=== PATIENT | female | born 1955 | race African-American/Black ===

== ENCOUNTER 2020-02-07 04:15 | Inpatient (IN) | payer BC ==
[2020-02-06 16:10] VITALS: BMI 35.2
[2020-02-07] MEDS ORDERED: DEXAMETHASONE SOD PHOSPHATE/PF 10 MG/ML SDV ONE (07:07)
[2020-02-07] MEDS ORDERED: MIDAZOLAM HCL 2 MG/2 ML SINGLE DOSE VIAL ONE ×2 (07:48)
[2020-02-07] MEDS ORDERED: CEFAZOLIN 2 GM/D5W 2 GM/50 ML ML IVPB ONE (08:08)
--- NOTE | 2020-02-07 08:08 | HP ---
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: Alzheimer's, CVA, Dementia, Migraine, Multiple Sclerosis, Peripheral Neuropathy, Parkinson's, Seizure, Syncope, TIA, Vertigo, Other Cardiovascular: No: AFIB, Aneurysm, Aortic Insufficiency, Aortic Stenosis, CAD, CHF, Deep Vein Thrombosis, HTN, Hyperlipdemia, VA, Mitral Insufficiency, Mitral Stenosis, Murmur, Pulmonary Hypertension, Other Pulmonary: No: Asthma, Bronchitis, Cancer, COPD, O2 Dependent, Pneumonia, Previously Intubated, Pulmonary Embolus, Pulmonary Fibrosis, Sleep Apnea, Other Gastrointestinal: No: Ascites, Cancer, Constipation, Crohn's Disease, Diverticulitis, Diverticulosis, Esophageal Varices, Gastritis, GERD, GI Bleed, Hemorrhoids, Hiatal Hernia, Inflamatory Bowel Disease, Irritable Bowel Disease, Pancreatitis, Peptic Ulcer Disease, Ulcerative Colitis, Other Hepatobiliary: No: Cirrhosis, Cholelithiasis, Cholecystitis, Choledocholithiasis, Hepatitis A, Hepatitis B, Hepatitis C, Other Renal/: No: Renal Failure, Renal Inusuff, BPH, Cancer, Hematuria, Hemodialysis, Neurogenic Bladder, Renal Calculi, UTI, Other Reproductive: No: Ectopic , Endometriosis, Fibroids, PID, Polycystic Ovary Syndrome, Postmenopausal, Other ...: No Heme/Onc: No: Anemia, B12 Deficiency, Bleeding Disorder, Cancer, Current Chemotherapy, Current Radiation Therapy, Hemochromatosis, Hypercoaguable State, Myeloproliferative Synd, Sickle Cell Disease, Sickle Cell Trait, Thrombocytopenia, Other Infectious Disease: No: AIDS, C-Diff, Herpes Zoster, HIV, MRSA, STD's, Tuberculosis, VREF, Other Psych: No: Addictions, Anxiety, Bipolar, Depression, Panic, Psychosis, Schizophrenia, Other Musculoskeletal: No: Bursitis, Chronic low back pain, Hemiparesis, Hemiplegia, Osteoarthritis, Paraplegia, Other Rheumatology: No: Fibromyalgia, Gout, Lupus, Rheumatoid Arthritis, Sarcoidosis, Vasculitis, Other ENT: No: Allergic Rhinitis, Sinusitis, Other Endocrine: No: Patrick's Disease, Chinyere's Disease, Diabetes Insipidus, Diabetes Mellitus, Hyperparathyroidism, Hyperthyroidism, Hypothyroidism, Osteopenia, SIADH, Other Dermatology: No: Basal Cell, Cellulitis, Eczema, Melanoma, Psoriasis, Squamous Cell, Other - Past Surgical History Past Surgical History: No: None, AAA Repair, AICD, Amputation, Appendectomy, Arthrosocopy, AV Fistula/Graft, Bariatric Surgery, Breast Biopsy, Bypass, CABG, Carotid Endarterectomy, Cataract Removal, Cholecystectomy, Colectomy, Colonoscopy, Colostomy, Craniotomy, , Cystectomy, Hernia Repair, Hysterectomy, Ileal Conduit, Ileosotomy, Joint Replacement, Kidney Transplant, Laminectomy, Liver Transplant, Mastectomy, Nephrectomy, Oopherectomy, Orchiectomy, Permanent Pacemaker, Prostatectomy, Splenectomy, Stent, Thoracotomy, TURP, Tonsillectomy, Tubal Ligation, Upper Endoscopy, Valve Replacement, Vasectomy, Vein Stripping/Ligation - Advance Directives Advance Directives: Yes: Living Will - Smoking History Smoking history: Never smoked Have you smoked in the past 12 months: No - Alcohol/Substance Use Hx Alcohol Use: No History of Substance Use: reports: None - Social History Usual Living Arrangement: Yes: With Significant Other Do you think of yourself as: Straight/Heterosexual ADL: Independent History of Recent Travel: No Home Medications - Allergies Allergies/Adverse Reactions: Allergies Allergy/AdvReac Type Severity Reaction Status Date / Time No Known Allergies Allergy Verified 02/07/20 06:47 - Home Medications Home Medications: Ambulatory Orders Amlodipine Besylate 2.5 mg PO DAILY 02/06/20 Brimonidine Tartrate/Timolol [Combigan Eye Drops] 5 ml OU HS 02/06/20 Latanoprost 0.005% Eye Drops [Xalatan 0.005% Eye Drops -] 1 drop OU HS 02/06/20 Losartan Potassium 50 mg PO DAILY 02/06/20 Multivit-Min/Iron/Folic Acid/K [One Daily Women's Multivitamin] 1 each PO DAILY 02/06/20 Family Medical History Family History: Denies Review of Systems - Review of Systems Constitutional: reports: No Symptoms Eyes: reports: No Symptoms HENT: reports: No Symptoms Neck: reports: No Symptoms Cardiovascular: reports: No Symptoms Respiratory: reports: No Symptoms Gastrointestinal: reports: No Symptoms Genitourinary: reports: No Symptoms Breasts: reports: No Symptoms Reported Musculoskeletal: reports: No Symptoms Integumentary: reports: No Symptoms Neurological: reports: No Symptoms Endocrine: reports: No Symptoms Hematology/Lymphatic: reports: No Symptoms Psychiatric: reports: No Symptoms Physical Examination Vital Signs: Vital Signs Temperature 98 F 02/07/20 06:38 Pulse Rate 81 02/07/20 06:38 Respiratory Rate 18 02/07/20 06:38 Blood Pressure 145/83 02/07/20 06:38 O2 Sat by Pulse Oximetry (%) 99 02/07/20 06:38 Constitutional: Yes: Well Nourished, No Distress, Calm Eyes: Yes: WNL, Conjunctiva Clear, EOM Intact HENT: Yes: WNL, Atraumatic, Normocephalic Neck: Yes: WNL, Supple, Trachea Midline Cardiovascular: Yes: WNL, Regular Rate and Rhythm Respiratory: Yes: WNL, Regular, CTA Bilaterally Gastrointestinal: Yes: WNL, Normal Bowel Sounds, Soft ...Rectal Exam: Yes: WNL Renal/: Yes: WNL Breast(s): Yes: WNL Musculoskeletal: Yes: WNL Extremities: Yes: WNL Edema: No Peripheral Pulses WNL: Yes Integumentary: Yes: WNL Wound/Incision: Yes: Clean/Dry, Well Approximated Neurological: Yes: WNL, Alert, Oriented ...Motor Strength: WNL Psychiatric: Yes: WNL, Alert, Oriented Assessment/Plan for menopausal vag bleeding, fibroids
[2020-02-07] MEDS ORDERED: SUCCINYLCHOLINE CHLORIDE 200 MG/10 ML SYRINGE ONE (08:30)
[2020-02-07] MEDS ORDERED: LIDOCAINE HCL/PF 2% SDV 5ML VIAL ONE (08:30)
[2020-02-07] MEDS ORDERED: fentaNYL CITRATE 250 MCG/5 ML VIAL ONE (08:30)
[2020-02-07] MEDS ORDERED: ROCURONIUM BROMIDE 50 MG/5 ML SYRINGE ONE (08:30)
[2020-02-07] MEDS ORDERED: PROPOFOL 20 ML ONE (08:30)
[2020-02-07] MEDS ORDERED: ceFAZolin 2 GRAM PREMIX BAG IVPB ONE (08:38)
--- NOTE | 2020-02-07 10:04 | EKG ---
Test Reason : Blood Pressure : / mmHG Vent. Rate : 063 BPM Atrial Rate : 063 BPM P-R Int : 148 ms QRS Dur : 086 ms QT Int : 436 ms P-R-T Axes : 038 016 015 degrees QTc Int : 446 ms NORMAL SINUS RHYTHM NORMAL ECG NO PREVIOUS ECGS AVAILABLE Confirmed by MD Moi, Joe ([id number]) on 02/07/2020 10:03:43 AM Referred By: Vianey SORIA Confirmed By:Joe Prater MD
[2020-02-07] MEDS ORDERED: GLYCOPYRROLATE 0.2 MG/1 ML VIAL ONE ×2 (10:24)
[2020-02-07] MEDS ORDERED: NEOSTIGMINE METHYLSULFATE 0.5 MG/1 ML - 10 ML MDV ONE (10:24)
--- NOTE | 2020-02-07 10:36 | PN ---
Progress Note (short form) - Note Progress Note: I assisted Dr. Salvador at [facility] for the entirety of the case.
[2020-02-07] MEDS ORDERED: IBUPROFEN 800 MG/8 ML IJ IVPB PRN (10:41)
[2020-02-07] MEDS ORDERED: ACETAMINOPHEN 325 MG TABLET (FP) PO PRN (10:41)
[2020-02-07] MEDS ORDERED: oxyCODONE HCL 5 MG TABLET PO PRN ×2 (10:41)
[2020-02-07] MEDS ORDERED: ONDANSETRON 4 MG/2 ML VIAL IVPUSH PRN (10:47)
[2020-02-07] MEDS ORDERED: PROMETHAZINE HCL 25 MG/1 ML VIAL IVPB PRN (10:47)
--- NOTE | 2020-02-07 10:50 | OP ---
Operative Note - Note: Operative Date: 02/07/20 Pre-Operative Diagnosis: menopausal vag bleeding, fibroids Operation: ailin, bso Findings: fibroids, Post-Operative Diagnosis: Same as Pre-op Surgeon: Javy Salvador [employer] Dual Rate Supervisor: Thomas Braun Anesthesiologist/ADMISSIONS OFFICER: Hieu Martinez Anesthesia: General Specimens Removed: uterus, ovaries , tubes Estimated Blood Loss (mls): 600 (no complications ) Operative Report Dictated: Yes
[2020-02-07] MEDS ORDERED: HYDROmorphone *PCA* 10MG/50ML DISP.SYRIN ONE (10:54)
[2020-02-07] MEDS ORDERED: HYDROmorphone *PCA* 10MG/50ML DISP.SYRIN PCA SCH (11:00)
[2020-02-07] MEDS ORDERED: HYDROmorphone *PCA* 10MG/50ML DISP.SYRIN PCA ONE ×2 (11:25→11:45)
[2020-02-07] MEDS: CEFAZOLIN 2 GM/D5W 2 GM/50 ML ML IVPB SCH (17:53)
[2020-02-08] MEDS: CEFAZOLIN 2 GM/D5W 2 GM/50 ML ML IVPB SCH (02:04)
[2020-02-08 08:11] LABS: BASO % 0.1 % (0-2.0); HEMATOCRIT 32.7 % (32.4-45.2); HEMOGLOBIN 11.3 GM/dL (10.7-15.3); LYMPH % 13.7 % (8-40); MCH 31.7 pg (25.7-33.7); MCHC 34.6 g/dl (32.0-36.0); MEAN CELL VOLUME 91.7 fl (80-96); MEAN PLT VOLUME 7.8 fl (7.5-11.1); MONO % 5.4 % (3.8-10.2); NEUT % 80.8 % (42.8-82.8); PLATELET COUNT 261 K/MM3 (134-434); RBC 3.57 M/mm3 (3.60-5.2); WHITE BLOOD COUNT 10.7 K/mm3 (4.0-10.0)
--- NOTE | 2020-02-08 11:32 | PN ---
HC Provider Note Provider Note: Anesthersia Post Op Note Pt s/p GA w/ PNB for VENTURA/BSO Pt awake and alert sitting up in bed Denies n/v, no puritis pt reports good pain control 07/24 with minimal use of FLOOR DIRECTOR pt tolerating po - will d/c FLOOR DIRECTOR convert to oral regime VSS no apparent anesthesia complications Aisha Plunkett.
[2020-02-08] MEDS ORDERED: PCA PUMP NR ONE (15:55)
--- NOTE | 2020-02-08 21:08 | PN ---
Progress Note (short form) - Note Progress Note: pod 1, vss, cbc wnl, no pain, no infection, ambulating well, dc pt home tomorrow
--- NOTE | 2020-02-08 21:54 | PN ---
Progress Note (short form) - Note Progress Note: pod 2, vss, afebrile, wound clean, positive bowl sound, ambulating well, cbc wnl, no severe pain, will dc pt home tomorrow
--- NOTE | 2020-02-08 21:58 | DS ---
Physical Examination Vital Signs: Vital Signs Temperature 98.1 F 02/08/20 18:08 Pulse Rate 61 02/08/20 18:08 Respiratory Rate 20 02/08/20 18:08 Blood Pressure 137/75 02/08/20 18:08 O2 Sat by Pulse Oximetry (%) 97 02/08/20 18:08 Constitutional: Yes: Well Nourished, No Distress, Calm Eyes: Yes: WNL, Conjunctiva Clear, EOM Intact HENT: Yes: WNL, Atraumatic, Normocephalic Neck: Yes: WNL, Supple, Trachea Midline Cardiovascular: Yes: WNL, Regular Rate and Rhythm Respiratory: Yes: WNL, Regular, CTA Bilaterally Gastrointestinal: Yes: WNL, Normal Bowel Sounds, Soft ...Rectal Exam: Yes: WNL Renal/: Yes: WNL Breast(s): Yes: WNL Musculoskeletal: Yes: WNL Extremities: Yes: WNL Edema: No Peripheral Pulses WNL: Yes Integumentary: Yes: WNL Wound/Incision: Yes: Clean/Dry, Well Approximated Neurological: Yes: WNL, Alert, Oriented ...Motor Strength: WNL Psychiatric: Yes: WNL, Alert, Oriented Labs: CBC, BMP 02/08/20 07:10 Discharge Summary Problems reviewed: Yes Reason For Visit: FIBROIDS Procedures: Principal: totsal abd hysterectomy, bilateral salpingooopherectomy Other Procedures: none Hospital Course: uneventful Condition: Good - Instructions Diet, Activity, Other Instructions: Dr. miranda discharge instructions Physical activity Resume your normal everyday activity as tolerated no heavy lifting or exercise until seen by your surgeon. You may walk unlimited jose de jesus of and climb stairs. Y ou may resume driving the car when you feel safe and comfortable behind the wheel. No sexual activity as instructed by Dr. miranda Wound care If you have a bandage, leave it on, and keep dry for 48-72 hours. After that t queenie discard the outer bandage. If they are tapes on the skin under the out of bandage leave them in place. They will peel off in the next 7 to 10 days. Do Not Peel them off. You may shower the day after surgery. If there are tapes present on the skin, you may shower over them. Diet There are no dietary restrictions. Eat healthy, high-fiber foods. Drink 6 to 8 glasses of liquid each day. This will assist in keeping your bowels are regular. Pain management You may take Tylenol or acetaminophen or Ibuprofen (for example, Motrin, Advil etc.) from my pain prescription medication is ordered should be taken as prescribed for moderate to severe pain. Call Dr. miranda for any of the following: Severe pain not relieved by medication Fever of 101 or higher Excessive bleeding or drainage on dressing Inability to urinate Call the office at [phone] for an appointment in seven days. Disposition: HOME - Home Medications Comprehensive Discharge Medication List: Ambulatory Orders Amlodipine Besylate 2.5 mg PO DAILY 02/06/20 Brimonidine Tartrate/Timolol [Combigan Eye Drops] 5 ml OU HS 02/06/20 Latanoprost 0.005% Eye Drops [Xalatan 0.005% Eye Drops -] 1 drop OU HS 02/06/20 Losartan Potassium 50 mg PO DAILY 02/06/20 Multivit-Min/Iron/Folic Acid/K [One Daily Women's Multivitamin] 1 each PO DAILY 02/06/20 Prescription Drug Monitoring Program (I-STOP) results: I-STOP reviewed and no issues identified
[2020-02-09 10:56] VITALS: BP 130/72; PULSE 69; TEMP 98
--- NOTE | 2020-02-10 08:15 | OP ---
DATE OF OPERATION: 02/07/2020 PREOPERATIVE DIAGNOSES: Persistent postmenopausal vaginal bleeding and fibroid uterus. PROCEDURE: Total abdominal hysterectomy and bilateral salpingo-oophorectomy. POSTOPERATIVE DIAGNOSES: Persistent postmenopausal vaginal bleeding and fibroid uterus. SURGEON: Javy Salvador MD JANITORIAL ASSISTANT: Thomas Braun MD ANESTHESIA: General anesthesia. ANESTHESIOLOGIST: Hieu Martinez MD INDICATION: This is a 64-year-old female patient who was known to have a fibroid uterus of 12 weeks' size and patient had persistent postmenopausal bleeding, has been biopsied by Dr. Best by uterine biopsy and persistently remained to be normal. However, patient is 64 years old. She is afraid of it turning to cancer, and she does not want to continue to have a biopsy anymore. So, patient had a fibroid uterus. So, all the risks and benefits of a total abdominal hysterectomy and bilateral salpingo-oophorectomy were explained to the patient, and the patient understood. Patient agreed and patient taken to the OR for total abdominal hysterectomy. Patient was explained that she is menopause, and at 64 years old, there is no need to save the ovaries. Patient did consider saving the ovaries, but after education, patient agreed. Patient is not going to save her ovaries and the cervix was also explained that typically removed. Patient understood and agreed. Patient was placed on the operating table in supine position. After general anesthesia was obtained, the patient's abdomen and pelvis were prepped and draped in the usual sterile manner. Pfannenstiel incision was made. Incision was made through skin, subcutaneous tissue until fascia was nicked in the midline. The fascia extended bilaterally. Intraperitoneal cavity was entered. At this time, we placed the [place] retractor. Patient was placed in Trendelenburg position, and bowels were packed away superiorly. At this time, we used a towel clip, grabbed the fundus part of the uterus, which had a fibroid, and that was pulled up to the outside of the abdominal cavity. So, at this time, because of [id number] fibroid uterus, poor visualization, it was not easy to see. So, at this time, we proceeded to do the left side of the round ligament which was doubly transected and suture ligated. Good hemostasis. The broad ligament was dissected all the way down to the anterior leaf of the bladder flap, and the bladder flap was created. Same thing was performed on the right side of the round ligament, and at this point, also, the broad ligament was dissected down to the bladder flap area. So, at this time, bilateral salpingo-oophorectomy was performed. Infundibulopelvic ligament was doubly transected and suture ligated. Good hemostasis. No complications at this point; so, we proceeded to dissect and skeletonize the uterine artery because of the fibroid also in the lower segment part. So, we carefully dissected the uterine artery, and then, we placed a John clamp on the specimen/uterine side of the uterine artery. We doubly transected/ligated on the uterine side/specimen side of the uterus. Good hemostasis. Then, carefully hugging the cervix and the uterus, the cardinal ligament was doubly transected, ligated down to the cardinal ligament area. So, good hemostasis obtained. Finally, we got down to the cervix part. Cervix was removed from the vagina, and then, the vaginal cuff was closed with [id number] sutures. Then, both sides of the cardinal ligaments were reapproximated, were tied together. Good hemostasis. No complication. The ureter was palpated, was far away. We did not have to encounter the ureter at all. So, good hemostasis. The patient was draining clear urine. Blood loss about 600 mL. Patient tolerated the procedure well. Surgicel was applied to the surgical cuff area. Other than that, no complication. Peritoneum was closed. Fascia was closed. The skin was closed. She was transferred to recovery room in stable condition. MD JORDANA PINO/[id number]
--- NOTE | 2020-02-13 13:21 | PATH ---
Surgical Pathology Report Patient Name: [facility]. Rec. #: [id number] /Age/Gender: 1955 (Age: 64) / F Account: [id number] Location: [facility] MED/SURG Taken: 02/07/2020 Received: 02/07/2020 Reported: 02/13/2020 Physicians: Javy Salvador MD Specimen(s) Received UTERUS, CERVIX, BILATERAL OVARIES AND FALLOPIAN TUBES Clinical History Fibroids Final Diagnosis UTERUS, CERVIX, BILATERAL OVARIES AND FALLOPIAN TUBES, TOTAL ABDOMINAL HYSTERECTOMY WITH BILATERAL SALPINGO-OOPHORECTOMY: ENDOMETRIOID CARCINOMA, FIGO GRADE 1 OF 3, ASSOCIATED WITH COMPLEX ATYPICAL HYPERPLASIA. TUMOR MEASURES 3 X 1.5 CM IN GREATEST GROSS DIMENSION. CARCINOMA IS CONFINED TO THE ENDOMETRIUM; NO MYOMETRIAL INVASION IDENTIFIED. NO CERVICAL STROMAL INVASION IDENTIFIED. NO LOWER UTERINE SEGMENT INVOLVEMENT IDENTIFIED. NO UTERINE SEROSAL INVOLVEMENT IDENTIFIED. NO PARAMETRIAL INVOLVEMENT IDENTIFIED. NO LYMPHOVASCULAR INVASION IDENTIFIED. UTERUS SHOWS ADDITIONAL AREAS OF ADENOMYOSIS, LEIOMYOMA(TA), AND ENDOMETRIAL POLYPS. BILATERAL OVARIES WITHOUT SIGNIFICANT PATHOLOGIC FINDINGS. BILATERAL FALLOPIAN TUBES WITH PARATUBAL CYSTS. AJCC PATHOLOGIC STAGE (pTNM): pT1a pNx. Comment: Case seen in intradepartmental review with consensus on diagnosis. Findings discussed with Dr. Salvador, 02/13/20. Comments Endometrial Carcinoma :Surgical Pathology Cancer Case Summary Based on AJCC 8th edition Procedure _X_ Total hysterectomy and bilateral salpingo-oophorectomy Tumor Size Greatest dimension: 3 X 1.5 cm (gross measurement) Histologic Type _X_ Endometrioid carcinoma, NOS Histologic Grade _X_ FIGO grade 1 Myometrial Invasion _X_ Not identified Uterine Serosa Involvement _X_ Not identified Cervical Stromal Involvement _X_ Not identified Other Tissue/Organ Involvement _X_ Not identified Margins Parametrial/Paracervical Margin _X_ Uninvolved by carcinoma Lymphovascular Invasion _X_ Not identified Regional Lymph Nodes _X_ No lymph nodes submitted or found Pathologic Stage Classification (pTNM, AJCC 8th Edition) Primary Tumor (pT) _X_ pT1a: Tumor limited to endometrium or invading less than half of the myometrium Category (pN) _X_ pNX: Regional lymph nodes cannot be assessed Immunohistochemical stains for MisMatch Repair Protein Analysis performed at [facility] in [place], [place] ([id number]) and interpreted at [facility] show the following: RESULTS: HMLH-1 INTACT NUCLEAR EXPRESSION HMSH-2 INTACT NUCLEAR EXPRESSION HMSH-6 INTACT NUCLEAR EXPRESSION PMS2 INTACT NUCLEAR EXPRESSION INTERPRETATION: No loss of nuclear expression of MMR proteins: low probability of microsatellite instability-high (MSI-H) Electronically Signed Saundra Julian M.D. Gross Description Received in formalin labeled "right and left ovaries, cervix," is a 432 g supracervically amputated uterus, separately submitted portion of cervix, undesignated ovaries (2), and undesignated fallopian tubes (2) The uterus measures 10 cm from superior to inferior, 8 cm from left to right and 7.5 cm from anterior to posterior. The serosa is ordonez-pink and smooth and show bulging subserosal nodules. The endometrial cavity is distorted and measures 5 cm in length and 3 cm from cornu to cornu. A 3.5 cm endometrial polyp is identified in the posterior endometrium, inferiorly. Focal thickening of the endometrium within the uterine fundus with associated friable tissue measuring 3 x 1.5 cm is noted. Remainder of the endometrium is ordonez, measuring up to 0.2 cm in thickness. The myometrium is ordonez-pink, trabeculated, and measures up to 3 cm in thickness. The myometrium displays multiple intramural nodules distorting the endometrial cavity consistent with fibroids, measuring up to 4.5 cm in greatest dimension. The cut surface of the nodules is ordonez, rubbery, and displays a whorled architecture. No areas of hemorrhage or necrosis are identified. Separately submitted cervix measuring 3.5 x 3 x 2 cm is identified. Ectocervix is white-ordonez and glistening. No surface lesions are identified. Endocervix is ordonez and trabeculated. There are 2 undesignated fimbriated fallopian tubes measuring 3.5 and 4 cm in length. The outer surface is ordonez-azevedo and smooth. Sectioning reveals an unremarkable lumen. Two undesignated ovaries measuring 3 x 2 x 1 and 3.5 x 2 x 0.7 cm are identified. The outer surface is ordonez-azevedo. Cross sections of the ovaries are unremarkable. Apparatus Engineering Technologist sections are submitted in 33 cassettes as follows: 1-anterior endomyometrium; 2-posterior endomyometrium and polyp; 3- friable tissue, thickened area, fundus; 2-4-cylbgljdqq and intramural nodule; 5-6 largest intramural nodule; 7-8 cervix ; 9-10, undesignated ovaries, each; 11-12- undesignated fallopian tube, fimbria and cross sections, respectively; 97-72-fxltyzrnyfpu fallopian tube, fimbria and cross sections, respectively. Additional sections are submitted as follows: 15-16 full thickness of endometrial thickening, anterior fundus, bisected section; 17- additional section of endometrial thickening, anterior fundus; 18-21 anterior endomyometrium, superior to inferior; 22-24- posterior endomyometrium, superior to inferior; 25- anterior lower uterine segment to cervical stump; 26-posterior lower uterine segment to cervical stump; 27- right parametria; 28- left parametria; 29-30-full thickness of endometrial thickening-fundus, bisected section; 45-13-vvamifqej of endometrium; 33- remainder parametria.
== END 2020-02-09 12:06 | disposition home or self-care (01) | DRG 743 ==
LOC: J2C 04:15 → J8W 17:01
PROVIDERS: ADMIT Obstetrics & Gynecology; ATTEND Obstetrics & Gynecology
PROC: 0UT70ZZ Resection of Bilateral Fallopian Tubes, Open Approach (ICD-10-PCS; 2020-02-07)
PROC: 0UT20ZZ Resection of Bilateral Ovaries, Open Approach (ICD-10-PCS; 2020-02-07)
PROC: 0UT90ZZ Resection of Uterus, Open Approach (ICD-10-PCS; principal; 2020-02-07 08:00)
DX: D25.9 Leiomyoma of uterus, unspecified (principal); N95.0 Postmenopausal bleeding
CPT/HCPCS: 36415; 85025; 86850; 86900; 86901; 86922; 88309-TC; 93005; 93010; 94760